=== PATIENT | male | born 1970 | race Two or more races ===

== ENCOUNTER 2017-08-07 18:48 | Emergency (ER) | payer SELFPAY ==
[2017-08-07 18:57] VITALS: BP 145/90; PULSE 88; TEMP 98.8; BMI 29.6
[2017-08-07] MEDS ORDERED: KETOROLAC TROMETHAMINE 60 MG/2 ML VIAL IM ONE (21:59)
[2017-08-07] MEDS ORDERED: KETOROLAC TROMETHAMINE 60 MG/2 ML VIAL ONE (22:02)
--- NOTE | 2017-08-07 23:11 | PDOC ---
History of Present Illness - General Chief Complaint: Back Pain Stated Complaint: BACK PAIN Time Seen by Provider: 08/07/17 21:49 History Source: Patient Exam Limitations: No Limitations - History of Present Illness Initial Comments: 08/07/17 23:05 46 yr male no PMHX c/o low back pain for 8 days after lifting 45lb weight at the gym felt a pain to lower back. no incontinence of bowel or bladder. no numbness or tingling , no abd pain neg nvd. Pt has taken naprosyn without relief. pt ambulatory Past History - Past Medical History Allergies/Adverse Reactions: Allergies Allergy/AdvReac Type Severity Reaction Status Date / Time No Known Allergies Allergy Verified 08/07/17 18:57 Home Medications: Ambulatory Orders Diazepam [Valium] 5 mg PO Q8H PRN #12 tablet MDD 3 tabs 08/07/17 Ketorolac Tromethamine [Toradol] 10 mg PO Q6H PRN #20 tablet 08/07/17 Naproxen [Naprosyn -] 500 mg PO BID 08/07/17 Oxycodone HCl/Acetaminophen [Percocet 5-325 mg Tablet] 1 - 2 tab PO Q6H PRN #12 tab MDD 8 TABS 08/07/17 Thyroid Disease: No - Suicide/Smoking/Psychosocial Hx Smoking History: Never smoked Have you smoked in the past 12 months: No Information on smoking cessation initiated: No Hx Alcohol Use: No Drug/Substance Use Hx: No Substance Use Type: None *Physical Exam - Vital Signs Last Vital Signs Temp Pulse Resp BP Pulse Ox 98.8 F 88 18 145/90 100 08/07/17 18:54 08/07/17 18:54 08/07/17 18:54 08/07/17 18:54 08/07/17 18:54 - Physical Exam General Appearance: Yes: Nourished, Appropriately Dressed HEENT: positive: EOMI, QUINN, TMs Normal, Pharynx Normal Neck: positive: Supple. negative: Tender Respiratory/Chest: positive: Lungs Clear, Normal Breath Sounds Cardiovascular: positive: Regular Rhythm, Regular Rate Gastrointestinal/Abdominal: positive: Normal Bowel Sounds, Soft. negative: Tender Rectal Exam: positive: normal exam, normal rectal tone Musculoskeletal: positive: Normal Inspection, Decreased Range of Motion, Muscle Spasm (left lower parapsinal lumbar ). negative: CVA Tenderness (L), Vertebral Tenderness Extremity: positive: Normal Capillary Refill, Normal Inspection, Normal Range of Motion. negative: Tender Integumentary: positive: Normal Color, Dry, Warm Neurologic: positive: Fully Oriented, Alert, Normal Mood/Affect, Normal Response , Motor Strength 5/5, Other (positive SLR left at 45 degrees ) ED Treatment Course - RADIOLOGY Radiology Studies Ordered: Category Date Time Status SPINE-LUMBAR ONLY [RAD] Stat Radiology 08/07/17 21:59 Completed - Medications Given in the ED: ED Medications Discontinued Medications Generic Name Dose Route Start Last Admin Trade Name Daisy PRN Reason Stop Dose Admin Ketorolac Tromethamine 60 mg 08/07/17 21:59 08/07/17 22:06 Toradol Injection - IM 08/07/17 22:00 60 mg ONCE ONE Administration Oxycodone/Acetaminophen 1 combo 08/07/17 21:59 08/07/17 22:06 Percocet 5/325 - PO 08/07/17 22:00 1 combo ONCE ONE Administration Progress Note - Progress Note Progress Note: pt improved after the medication ambulating more easily will dc home strict follow up instructions given to pt and his . all questions asked and answered at discharge. Medical Decision Making - Medical Decision Making 08/07/17 23:07 cc: low back pain worse for one week neg saddle anesthesia neg bowel or bladder dysfunction will give toradol percocet xray lumbar spine pain is reproduced with movement , walking makes pain worse, radiates to left buttock and lateral thigh *DC/Admit/Observation/Transfer Diagnosis at time of Disposition: Low back pain Qualifiers: Chronicity: acute Back pain laterality: left Sciatica presence: with sciatica Sciatica laterality: sciatica of left side Qualified Code(s): M54.42 - Lumbago with sciatica, left side - Discharge Dispostion Disposition: HOME Condition at time of disposition: Improved - Prescriptions Prescriptions: Oxycodone HCl/Acetaminophen [Percocet 5-325 mg Tablet] 1 - 2 tab PO Q6H PRN #12 tab MDD 8 TABS PRN Reason: Severe Pain Ketorolac Tromethamine [Toradol] 10 mg PO Q6H PRN #20 tablet PRN Reason: Back Pain Diazepam [Valium] 5 mg PO Q8H PRN #12 tablet MDD 3 tabs PRN Reason: Muscle Spasms - Referrals Referrals: Maryan Sr MD [Primary Care Provider] - David Buckley MD [Staff Physician] - - Patient Instructions Additional Instructions: follow with the orthopedist or this week call tomorrow to make appointment take the percocet for severe pain take toradol for moderate pain take the valium for muscle relaxant DO NOT TAKE WITH PERCOCET Apply warm compresses, ICY HOT patches to lower back no heavy lifting or bending return to ER for any worseing pain, incontinence of bowel or bladder , numbness or tingling
== END 2017-08-07 23:21 | disposition home or self-care (01) ==
LOC: JERFT 18:48
PROC: 3E0233Z Introduction of Anti-inflammatory into Muscle, Percutaneous Approach (ICD-10-PCS; principal; 2017-08-07)
DX: M54.42 Lumbago with sciatica, left side (principal); X50.0XXA Overexertion from strenuous movement or load, initial encounter; Y93.B3 Activity, free weights; Y92.39 Other specified sports and athletic area as the place of occurrence of the external cause; Y99.8 Other external cause status
CPT/HCPCS: 72100-TC; 99281-25